=== PATIENT | male | born 1940 | race Caucasian/White ===

== ENCOUNTER → 2018-02-13 | Outpatient (CLI) | payer MEDICARE, OTHER ==
[2018-02-13 12:38] LABS: ABSOLUTE EOSINOPHILS 0.1 thou/uL (0.0-0.7); ABSOLUTE LYMPHOCYTES 1.2 thou/uL (0.8-5.3); ABSOLUTE MONOCYTES 0.9 thou/uL (0.0-1.2); ABSOLUTE NEUTROPHILS 7.1 thou/uL (1.6-8.1); BASOPHILS 0.4 %; EOSINOPHILS 1.3 %; HEMATOCRIT 47.3 % (42.0-52.0); HEMOGLOBIN 15.4 gm/dL (14.0-18.0); LYMPHOCYTES 12.8 %; MCH 28.5 pg (26.0-34.0); MCHC 32.6 g/dL (28.0-37.0); MCV 87.4 fL (80.0-100.0); MONOCYTES 9.5 %; MPV 8.1 fl. (7.2-11.1); NUCLEATED RBCS 0 /100WBC; PLATELET COUNT* 302 thou/uL (150-400); RBC 5.41 mil/uL (4.50-6.00); RDW-CV 15.1 % (10.5-14.5); WBC 9.4 thou/uL (4.0-11.0)
[2018-02-13 12:53] LABS: ALBUMIN 3.2 g/dL (3.4-5.0); CALCIUM 8.8 mg/dL (8.5-10.1); TOTAL BILIRUBIN 0.3 mg/dL (<0.1-1.0); TOTAL PROTEIN 7.9 g/dL (6.4-8.2)
[2018-02-13 12:57] LABS: POTASSIUM 2.7 mmol/L (3.5-5.1)
== END ==
LOC: M.LAB 12:23
PROVIDERS: Nurse Practitioner Adult Health
DX: K59.00 Constipation, unspecified (principal); K92.1 Melena

== ENCOUNTER → 2018-02-16 | Outpatient (CLI) | payer MEDICARE, OTHER | LOC: M.CT 09:16 | DX: N28.1 Cyst of kidney, acquired (principal); K80.20 Calculus of gallbladder without cholecystitis without obstruction; N40.0 Benign prostatic hyperplasia without lower urinary tract symptoms; K76.9 Liver disease, unspecified; E87.6 Hypokalemia; K59.00 Constipation, unspecified ==

== ENCOUNTER → 2018-02-17 | Outpatient (CLI) | payer MEDICARE, OTHER | LOC: M.LAB 11:08 | DX: E87.6 Hypokalemia (principal) ==

== ENCOUNTER → 2018-03-24 | Outpatient (CLI) | payer MEDICARE, OTHER | LOC: M.LAB 04:47 | DX: Z01.812 Encounter for preprocedural laboratory examination (principal) ==

== ENCOUNTER → 2018-07-28 | Outpatient (CLI) | payer MEDICARE, OTHER ==
[2018-07-28 09:52] LABS: ABSOLUTE EOSINOPHILS 0.1 thou/uL (0.0-0.7); ABSOLUTE LYMPHOCYTES 1.1 thou/uL (0.8-5.3); ABSOLUTE MONOCYTES 0.6 thou/uL (0.0-1.2); ABSOLUTE NEUTROPHILS 3.7 thou/uL (1.6-8.1); BASOPHILS 0.4 %; EOSINOPHILS 1.9 %; HEMATOCRIT 45.3 % (42.0-52.0); HEMOGLOBIN 15.1 gm/dL (14.0-18.0); LYMPHOCYTES 19.5 %; MCH 28.1 pg (26.0-34.0); MCHC 33.4 g/dL (28.0-37.0); MCV 84.4 fL (80.0-100.0); MONOCYTES 10.9 %; MPV 8.5 fl. (7.2-11.1); NUCLEATED RBCS 0 /100WBC; PLATELET COUNT* 204 thou/uL (150-400); POLYS 67.3 %; RBC 5.37 mil/uL (4.50-6.00); WBC 5.4 thou/uL (4.0-11.0)
[2018-07-28 10:18] LABS: ALBUMIN 3.5 g/dL (3.4-5.0); CALCIUM 8.9 mg/dL (8.5-10.1); CREATININE 0.8 mg/dL (0.6-1.3); POTASSIUM 3.5 mmol/L (3.5-5.1); TOTAL BILIRUBIN 0.6 mg/dL (<0.1-1.0); TOTAL PROTEIN 7.7 g/dL (6.4-8.2)
[2018-07-28 11:43] LABS: ESR (SEDRATE) 18 mm/hr (0-20)
== END ==
LOC: M.LAB 09:34
PROVIDERS: Internal Medicine Gastroenterology
DX: K51.90 Ulcerative colitis, unspecified, without complications (principal)

== ENCOUNTER → 2018-08-19 | Outpatient (CLI) | payer MEDICARE, OTHER ==
[2018-08-19 23:11] LABS: GLYCOHEMOGLOBIN (HGB A1C) 6.4 % (4.8-5.6)
== END ==
LOC: M.LAB 08:18
PROVIDERS: Internal Medicine Gastroenterology
DX: K51.90 Ulcerative colitis, unspecified, without complications (principal); Z79.899 Other long term (current) drug therapy

== ENCOUNTER → 2020-11-03 | Outpatient (CLI) | payer MEDICARE, OTHER | LOC: M.LAB 05:16 | PROVIDERS: ATTEND Anesthesiology | DX: E87.6 Hypokalemia (principal) ==